=== PATIENT | male | born 1990 | race Two or more races ===

== ENCOUNTER 2020-12-17 03:39 | Emergency (ER) | payer MEDICAID, OTHER ==
[~2020-12-17] VITALS: Ht 175.3 cm; Wt 113.4 kg
[2020-12-17 06:11] LABS: Basophils # (auto) 0 10 ^3/uL (0-0.2); Basophils % (auto) 0.3 % (0.0-2.0); Eosinophils # (auto) 0.1 10 ^3/uL (0-0.8); Eosinophils % (auto) 0.7 % (0.0-7.0); Hematocrit 41.3 % (41.0-53.0); Hemoglobin 14.6 g/dL (13.5-17.5); Lymphocytes # (auto) 1.4 10 ^3/uL (0.4-5.4); Mean Corpuscular Hemoglobin 31.9 pg (28.0-32.0); Mean Corpuscular Hgb Conc. 35.4 g/dL (32.0-36.0); Monocytes # (auto) 0.3 10 ^3/uL (0-1.3); Monocytes % (auto) 3.2 % (0.0-12.0); Neutrophils # (auto) 7.4 10 ^3/uL (1.6-8.6); Neutrophils % (auto) 80.8 % (37.0-80.0); Nucleated Red Blood Cells % 0.1 %; Platelet Count (auto) 217 10^3/uL (140-450); Red Blood Cells 4.59 10^6/uL (4.5-5.90); Red Cell Distribution Width 12.8 % (11.8-14.3); White Blood Cell 9.1 10^3/uL (4.4-10.8)
[2020-12-17 06:31] LABS: INR 1.11 (0.9-1.15); Partial Thromboplastin Time 23.6 sec (23.0-31.2)
[2020-12-17 06:32] LABS: Alanine Aminotransferase 65 U/L (16-61); Anion Gap 10 (5-15); Blood Urea Nitrogen 13 mg/dL (7-18); Calcium 8.5 mg/dL (8.5-10.1); Carbon Dioxide 24 mmol/L (21-32); Chloride 105 mmol/L (98-107); GFR African American 143 mL/min; GFR Non-African American 118 mL/min; Glucose 114 mg/dL (74-106); Magnesium 2.2 mg/dL (1.6-2.6); Potassium 4.1 mmol/L (3.5-5.1); Sodium 139 mmol/L (136-145)
[2020-12-17 06:39] LABS: Alkaline Phosphatase 66 U/L (45-117); Aspartate Aminotransferase 41 U/L (15-37); Bilirubin, Total 0.4 mg/dL (0.2-1.0); Total Protein 7.8 g/dL (6.4-8.2)
[2020-12-17] MEDS ORDERED: SODIUM CHLORIDE 0.9% 1,000 ML IV ONE (07:00)
[2020-12-17 08:00] VITALS: BP 115/67
== END 2020-12-17 09:30 | disposition home or self-care (01) ==
LOC: ER 03:39 → EDBD 03:39 → ER 09:29
DX: R55 Syncope and collapse (principal)
CPT/HCPCS: 36415; 70450; 71045; 72125; 80053; 83735; 83880; 84443; 84484; 85025; 85379; 85610; 85730; 93005; 96360; 96361; 99285; J7030